=== PATIENT | male | born 1995 | race Hispanic/Latino ===

== ENCOUNTER 2022-04-02 14:51 | Emergency (ER) | payer MEDICAID, OTHER ==
[~2022-04-02] VITALS: Ht 180.3 cm; Wt 158.8 kg
[2022-04-02 15:46] VITALS: BP 153/86
[2022-04-02 16:07] LABS: APPEARANCE,URINE CLEAR (CLEAR); BILIRUBIN,URINE NEGATIVE (NEGATIVE); COLOR,URINE LIGHT-YELLOW (YELLOW); GLUCOSE, URINE (UA) NEGATIVE (NEGATIVE); KETONES,URINE NEGATIVE (NEGATIVE); LEUKOCYTE ESTERASE ,URINE NEGATIVE Leu/uL (NEGATIVE); NITRATE,URINE NEGATIVE (NEGATIVE); PH,URINE 5.5 (5.0-8.0); PROTEIN,URINE NEGATIVE (NEGATIVE); UROBILINOGEN,URINE 0.2 mg/dL (0.2-1.0)
[2022-04-02 16:17] LABS: MUCUS,URINE RARE LPF (None Seen); WBC,URINE 0-1 /HPF (0-1)
[2022-04-02 17:02] LABS: BASOPHILS % (AUTO) 0.4 % (0.0-5.0); EOSINOPHILS % (AUTO) 1.1 % (0.0-8.0); HEMATOCRIT 44.7 % (42-54); LYMPHOCYTES % (AUTO) 30.8 % (21.0-51.0); MEAN CORPUSCULAR HEMOGLOBIN 27.1 pg (27.0-33.0); MEAN CORPUSCULAR HGB CONC 32.9 g/dL (32.0-36.0); MEAN CORPUSCULAR VOLUME 82.3 fL (79-99); PLATELET COUNT (AUTO) 236 K/uL (130-400); RED BLOOD CELL COUNT(AUTO) 5.43 MIL/uL (4.50-6.20); RED CELL DISTRIBUTION WIDTH 12.7 % (11.0-15.5); WHITE BLOOD COUNT (AUTO) 7.3 K/uL (4.8-10.8)
[2022-04-02 17:12] LABS: CREATININE 0.9 mg/dL (0.5-1.5); POTASSIUM 3.9 mmol/L (3.5-5.1)
[2022-04-02 17:17] LABS: ALBUMIN 3.9 g/dL (3.5-5.0); TOTAL PROTEIN, SERUM 8.2 g/dL (6.0-8.3)
[2022-04-02] MEDS ORDERED: DOXY-469 PO (17:28)
[2022-04-02] MEDS ORDERED: CEFTRIAXONE 500MG VIAL IM ONE (17:30)
== END 2022-04-02 18:45 | disposition home or self-care (01) ==
LOC: EDH 14:51
DX: N43.3 Hydrocele, unspecified (principal); N50.812 Left testicular pain
CPT/HCPCS: 99284; 80053; 85025; 87797; 87486; 81001; 36415; 76870; 96372; J0696

== ENCOUNTER 2022-04-04 14:37 | Emergency (ER) | payer OTHER ==
[~2022-04-04] VITALS: Ht 177.8 cm; Wt 158.8 kg
[~2022-04-04 14:37] MED LIST: DOXY-469 PO
[2022-04-04] MEDS ORDERED: KETOROLAC 15MG/ML VIAL (15MG/ML) IV ONE (16:00)
[2022-04-04] MEDS ORDERED: IBUP-2070 PO (16:24)
[2022-04-04] MEDS ORDERED: TAMS-1 PO (16:24)
[2022-04-04] MEDS ORDERED: ACET-2079 PO (16:24)
[2022-04-04 16:29] VITALS: BP 156/72
[2022-04-04] MEDS ORDERED: HYDROCODONE/ACETAMINOPHEN 5/325 MG TAB PO ONE (16:30)
[2022-04-04] MEDS ORDERED: IBUPROFEN 600 MG TABLET PO ONE (16:30)
[2022-04-04] MEDS ORDERED: TAMSULOSIN HCL 0.4 MG CAP.ER.24H PO SCH (16:30)
== END 2022-04-04 16:34 | disposition home or self-care (01) ==
LOC: EDH 14:37
DX: N20.1 Calculus of ureter (principal); N23 Unspecified renal colic; I10 Essential (primary) hypertension
CPT/HCPCS: 99284; 74176; 96374; J1885

== ENCOUNTER 2022-06-06 20:11 | Emergency (ER) | payer OTHER ==
[~2022-06-06] VITALS: Ht 180.3 cm; Wt 158.8 kg
[~2022-06-06 20:11] MED LIST changes: +ACET-2079 PO; +IBUP-2070 PO; +TAMS-1 PO
[2022-06-06 21:20] VITALS: BP 137/79
[2022-06-06] MEDS ORDERED: OSEL75 PO (23:11)
== END 2022-06-06 23:24 | disposition home or self-care (01) ==
LOC: EDH 20:11
DX: J10.1 Influenza due to other identified influenza virus with other respiratory manifestations (principal); I10 Essential (primary) hypertension; Z20.822 Contact with and (suspected) exposure to COVID-19; Z79.899 Other long term (current) drug therapy
CPT/HCPCS: 99283; 87635; 87880; 87804 ×2; C9803